=== PATIENT | female | born 1955 | race Two or more races ===

== ENCOUNTER → 2019-09-20 12:49 | Outpatient (CLI) | payer OTHER, SELFPAY | PROVIDERS: PCP Family Medicine; Visit Provider Urology | DX: R00.2 Palpitations (principal); R06.00 Dyspnea, unspecified; R55 Syncope and collapse; R53.83 Other fatigue | CPT/HCPCS: 93270 ==

== ENCOUNTER → 2019-12-06 09:31 | Outpatient (CLI) | payer OTHER, SELFPAY ==
--- NOTE | 2019-12-06 09:32 | CA_ITS ---
APPROVED REPORT EXAM: Comprehensive 2D, Doppler, and color-flow Echocardiogram Summer Babysitter: Licha Pickard RVT Ht: 5 ft 2 in Wt: 183lbs BSA: 1.84 BP: 121/74 mmHg Indications: Shortness of Breath, Palpitations, Dyspnea, Hyperlipidemia, Hypertension,JENN,DD M-Mode Dimensions RVDd 2.50 cm (0.9-2.6) LVDd 4.16 cm (3.5-5.7) IVSd 0.94 cm (0.6-1.1) PWd 0.84 cm (0.6-1.1) EF (Teich) 55.20% Left Ventricle Left atrium is mildly enlarged, left ventricle is normal size, mild concentric left ventricular hypertrophy, visually estimated ejection fraction 55% with no regional wall motion abnormality, grade 1 diastolic dysfunction seen without tissue Doppler evidence of raise left atrial pressure. Right Ventricle Right atrium and right ventricular normal size and contractility. Aortic Valve Aortic valve is minimally thickened and fibrosed. There is no aortic stenosis or aortic insufficiency. Mitral Valve Mitral valve is grossly normal, there is mild mitral regurgitation. Tricuspid Valve Tricuspid valve is grossly normal, there is mild tricuspid regurgitation. Pulmonic Valve Pulmonic valve is poorly visualized. Great Vessels Aortic root is normal size. Pericardium No significant pericardial effusion noted Conclusion 1. Mildly enlarged left atrium, normal left ventricular size, mild concentric left ventricular hypertrophy, visually estimated ejection fraction 55% with no regional wall motion abnormality, grade 1 diastolic dysfunction seen without tissue Doppler evidence of raise left atrial pressure. 2. Mild mitral and tricuspid regurgitation. 3. No significant pericardial effusion noted. Electronically signed by : Layo Geronimo, 12/07/2019 05:48:07
== END ==
PROVIDERS: PCP Family Medicine; Visit Provider Internal Medicine
DX: R00.2 Palpitations (principal); R06.00 Dyspnea, unspecified; R53.83 Other fatigue; R55 Syncope and collapse
CPT/HCPCS: 93306

== ENCOUNTER → 2020-10-19 13:22 | Outpatient (CLI) | payer OTHER, SELFPAY ==
[2020-10-19 14:24] LABS: Chloride 101 mmol/L (98-107); Potassium 4.8 mmoL/L (3.5-5.1); Sodium 138 mmol/L (136-145)
[2020-10-19 14:27] LABS: Anion Gap 14.8 mEq/L (5-15); Blood Urea Nitrogen 19 mg/dl (7-17); Calcium 10.3 mg/dl (8.4-10.2); Carbon Dioxide 27 mmol/L (22.0-30.0); Estimated Glomerular Filt Rate 85 ml/min (>60); GFR (African American) 102 ML/MIN (>60); Glucose 90 mg/dl (74-100)
[2020-10-19 14:35] LABS: NT Pro Brain Natriuretic Pep. 33.3 pg/mL (0-125)
== END ==
PROVIDERS: Visit Provider Internal Medicine Cardiovascular Disease
DX: Z01.810 Encounter for preprocedural cardiovascular examination (principal); I50.32 Chronic diastolic (congestive) heart failure; I27.29 Other secondary pulmonary hypertension
CPT/HCPCS: 36415; 80048; 83880

== ENCOUNTER → 2020-10-30 06:47 | Outpatient (CLI) | payer OTHER, SELFPAY ==
--- NOTE | 2020-10-30 06:56 | CT_ITS ---
PROCEDURE: CT CHEST WO CON CLINICAL INDICATION: Dyspnea soa covid Fever worsening COMPARISON: No exams were available for comparison TECHNIQUE: Axial images obtained with sagittal and coronal reformats. All CT scans at the facility use one or more dose reduction, viz: automated exposure control, ma/kV adjustment per patient size (including targeted exams where dose is matched to indication, i.e. head), or iterative reconstruction technique. FINDINGS: HEART AND MEDIASTINAL STRUCTURES: Unremarkable. LUNGS AND PLEURAL SPACES: There is calcified granuloma in the left upper lobe. The lungs are otherwise clear. No infiltrates are evident. No ground-glass opacities. There is some minimal atelectatic or fibrotic change in the right lower lobe. BONY STRUCTURES: Degenerative changes thoracic spine UPPER ABDOMEN: Unremarkable. ADDITIONAL FINDINGS: No other significant abnormalities. IMPRESSION: No acute finding. Dictated by: Bolivar Salvador MD 10/31/2020 08:38 Bolivar Salvador MD in [facility] 10/31/2020 08:38
--- NOTE | 2020-10-30 06:56 | CA_ITS ---
APPROVED REPORT Exam: Pharmacologic Technologist: Yvette Smith Ht: 5 ft 2 in Wt: 203 lbs BSA: 1.92 m2 HR: 70 bpm BP: 134/82 mmHg Indications: Shortness of Breath Medical History Medications: Omeprazole,,,,, Levothyroxine,,,,, Metoprolol,,,,, Atorvastatin,,,,, SyMBICORT,,,,, Albuterol,,,,, DulOXETINE,,,,, Nortriptyline,,,,, Stress Test Details Test: LEXISCAN HR Resting HR: 71 bpm Max Heart Rate (APMHR): 157 bpm Max HR Achieved: 93 bpm Target HR (85% APMHR): 133 bpm % of APMHR: 59 Recovery HR: 87 bpm BP Resting BP: 134.0/82.0 mmHg Max BP: 141.0/76.0 mmHg Recovery BP: 126.0/80.0 mmHg ECG Resting ECG: Sinus rhythm Clinical Exercise duration: 04:06 min Highest Stage Achieved: Stress ECG Conclusion Lexiscan portion completed. Patient complained of shortness of breath during peak infusion. Symptoms: Shortness of breath during peak infusion, resolved in recovery. No chest pain. Arrhythmias/Ectopy: No ectopy. ST-T Changes: Less than 1.[address] depression. Conclusion: Images to follow. Electronically signed by : Layo Geronimo, 10/31/2020 06:11:30
--- NOTE | 2020-10-30 06:56 | NM_ITS ---
APPROVED REPORT Exam: Nuclear Stress Test Indication: SOB, High cholesterol, Family history, Pre op Patient Location: Outpatient Stress Tech: Yvettedeyanira Smith NM Tech:Kassidy Lassiter, ARRT, RT (R)(N) Ht: 5 ft 2 in Wt: 200 lbs Bra Size: 44DD HR: 70 bpm BP: 134/82 mmHg BSA: 1.91 m2 BMI: 36.5 History: SOB, High cholesterol, Family history, Pre op Procedure: Patient received a 0.4 mg of intravenous Lexiscan, resting heart rate 70 bpm, resting blood pressure 134/82 mmHg, with Lexiscan maximum heart rate achived was 91 bpm which is Less than 85 % of the maximum predicted heart rate and blood pressure was 141/76 mmHg. With Lexiscan, patient denied any complaint of chest pain. Electrocardiogram Resting electrocardiogram showed sinus rhythm, with Lexiscan there is less than 1.[address] segment depression noted from the baseline EKG. The EKG portion of the Lexiscan is nondiagnostic. Cardiac Stress and Resting SPECT Images: Cardiac Stress and Resting SPECT images were obtained using technetium 99m Myoview 32.1 mCi stress and 10.87 mCi at rest. Gated SPECT for analysis of segmental wall motion and calculation of the ejection fraction also done. Cardiac stress and rest SPECT images show uniform myocardial activity without segmental perfusion abnormality, computer derived ejection fraction is over 65% with no regional wall motion abnormality, right ventricle is normal size and contractility. Conclusion: 1. The EKG portion of the Lexiscan is nondiagnostic. 2. No scintigraphic evidence of reversible ischemia seen, computer derived ejection fraction is over 65% with no regional wall motion abnormality, right ventricle is normal size and contractility. 3. Normal Lexiscan Myoview study. Electronically signed by : Layo Geronimo, 10/31/2020 06:22:47
--- NOTE | 2020-10-30 08:46 | HMH.ITSHM ---
Current Home Medications as stated by this patient Jacinda López or phone representative. []OMEPRAZOLE NORTIPTYLINE METOPROLOL LEVOTHYROXINE DULOXETINE BUDESONIDE ATORVASTATIN ALBUTEROL
== END ==
PROVIDERS: PCP Family Medicine; Visit Provider Internal Medicine Cardiovascular Disease
DX: Z01.810 Encounter for preprocedural cardiovascular examination (principal); R06.02 Shortness of breath
CPT/HCPCS: 71250; 78452; 93017; A9502; J2785